=== PATIENT | male | born 1935 | race Hispanic/Latino ===

== ENCOUNTER → 2024-10-21 08:25 | Outpatient (REF) | payer OTHER, SELFPAY | LOC: RAD 08:25 | PROVIDERS: ATTENDING PHYSICIAN Nurse Practitioner Family | DX: M25.532 Pain in left wrist (principal) | CPT/HCPCS: 73110 ==

== ENCOUNTER 2024-10-22 14:36 | Emergency (ER) | payer OTHER, SELFPAY ==
[2024-10-22 14:46] VITALS: BP 146/79
[2024-10-22 15:45] VITALS: BP 163/88
--- NOTE | 2024-10-22 15:52 | ED.MUSCINJ ---
HPI-Injury
General
Chief Complaint: Musculo-Skeletal Complaint
Source: patient and family (daughter)
Time Seen by Provider: 10/22/24 15:15
History of Present Illness-Injury
Is this injury a work related problem?: No
Is pt an associate of [facility]?: No
Initial Injury comments:
Daughter states patient fell at home 2 weeks ago and injured his left wrist. He declined ED evaluation at that time. SHe brought him up here to her home this weekend and noticed he was having difficulty with using left hand/wrist. He was evaluated
at yesterday and given rx to come to hospital for outpatient xray. Today he was seen by ortho in office and sent to ED for closed reductions. Daughter states that they are declining surgery for him due to his age. Dr. Warren will be in to
perform closed reduction bedside.
Past History
Past History
ED Past Medical History: HTN
ED Past Surgical History: None
Review of Systems
Review of Systems
Allergies reviewed?: Yes
All Other Systems: ROS reviewed and negative except as documented in HPI and ROS
Constitutional: Reports no symptoms
Musculoskeletal: Reports joint pain (pain to left wrist)
Skin: Reports no symptoms
Neurological: Reports no symptoms
Psychiatric: Reports no symptoms
Musculoskeletal Injury Exam
Musculoskeletal Injury Exam
Left Wrist:
Pain with Movement?: Moderate
Tender to palpation?: Moderate
Soft tissue swelling?: Moderate
External deformity and angulation?: Mild
Joint effusion?: None
Contusion?: None
Hematoma-local bleeding into tissue?: None
Strain- Sprain- Tear (Connective tissue injury)?: Moderate
Crepitus with movement?: No
Joint instability?: No
Malalignment/deformity?: No
Range of motion: Limited
Distal skin color and temperature: normal-warm & good color
Capillary Refill: normal
Normal distal neurovascular exam?: Yes
Phy Exam
General Physical Exam
General Presentation: well appearing and no apparent distress
General age: appears stated age
General Skin: warm and dry
General Habitus: normal
General Mental: alert
Musculoskeletal Exam
Musculoskeletal Exam: neuro vasc intact
Skin Exam
Skin Exam: normal color and warm/dry
Psychiatric Exam
Psychiatric Exam: normal mood/affect
Injury Course
Orders/Labs/Results
Orders:
Orders
10/22/24 16:13
INT (Intravenous Needle Therapy) As Directed
10/22/24 16:43
HYDROmorphone [Dilaudid] 0.5 mg IV NOW STA
10/22/24 16:53
CR Wrist - Left Min 2 Views Urgent
Comment: portable
Reason For Exam: reduction
10/22/24 17:16
Wrist, Left 2 Views CR [CR Wrist - Left Min 2 Views] Urgent
Comment:
Reason For Exam: Portable, post reduction, post splint
*Radiology
Radiology exam reviewed: radiology read reviewed
*Critical Care Note
Total Time (30-74mins, 75-104mins- exclusive of procedures): Not Applicable
Update Note
Update Note:
Closed reduction performed bedside by Dr. Warren. SPlint applied by him. Patient tolerated procedure well. Will discharge home. He will follow up with with Dr. Warren in office in 10 days.
ED Attending Note
-
Portions of this chart may have been created with voice recognition software.� Occasional wrong word or��sound alike� substitutions may have occurred due to the inherent limitations of voice recognition software.
Discharge Plan
Departure
Patient Disposition: Home (Routine Discharge)
Date of Disposition: 10/22/24
Time of Disposition: 17:46
Patient with high blood pressure during this ER visit?: No
Condition: Good
Covid-19: Not Applicable
Discharge Problem:
Fracture of wrist
Instructions: How to Use a Shoulder Sling, Using Cold for Pain, Splint Care, Wrist fracture
Prescriptions:
No Action
prednisone 10 mg Tablet
See Rx Instructions .ROUTE .COMPLEX Qty: 30 0RF
Rx Instructions:
Take By Mouth:
40 mg daily x3 days, 30 mg daily x3 days,
20 mg daily x3 days, 10 mg daily x3 days.
Referrals:
Rudy Gonzalez MD [Family Provider] -
Fredis Warren MD [Active] - Keep scheduled appt
Interventions
Interventions:
*Risk Screen - Suicide Last Done: 10/22/24 15:41
*General Assessment Last Done: 10/22/24 15:41
*Neglect/Abuse Screening Last Done: 10/22/24 15:41
*ED COVID-19 Vaccine History Last Done: 10/22/24 15:41
ED-Musculoskeletal Assessment Last Done: 10/22/24 15:45
Discharge Date and Time
Print Language: POLISH
[2024-10-22 16:00] VITALS: BP 158/76
[2024-10-22] MEDS: DILAUDID 0.5 MG IV (16:45)
--- NOTE | 2024-10-22 17:13 | CON.ORTHO ---
Consultation - Orthopedics
History
HPI: 89-year-old [id number] male presented for evaluation of left wrist pain. He reportedly sustained a fall at home 10 to 12 days ago and refused initial treatment. He is currently staying with his daughter who is local and she wanted to
have him have this evaluated. Radiographs showed a extra-articular angulated distal radius fracture. Given that the patient had not had reduction, presented emergency department for reduction. Patient localizes pain to the left wrist. He had
been wearing a removable wrist brace. He is able to move his wrist with mild to moderate pain. He is predominantly [place]o-speaking only. He is accompanied by his daughter who lives locally. I denies any numbness or tingling. Does have a
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 Daughter does also note some cognitive decline
Allergies / Home Medications
Past medical history: Hypertension, cognitive decline
Past surgical history: None reported
Family history: Not pertinent
Social history: Lives with daughter in [place], visiting locally for the holidays
Allergy/AdvReac Type Severity Reaction Status Date / Time
No Known Allergies Allergy Unverified 11/13/23 19:33
�Medication �Instructions �Recorded
prednisone 10 mg tablet See Rx Instructions .Route 11/13/23
.COMPLEX #30 tabs
Vital Signs / Lab Results
Temp Pulse Resp BP Pulse Ox
97.9 F 73 14 158/76 98
10/22/24 14:46 10/22/24 16:00 10/22/24 15:45 10/22/24 16:00 10/22/24 16:00
review of systems: 10 point review of systems reviewed and negative as otherwise stated
Examination
General: Pleasant, seated comfortably in bed at rest, daughter at bedside
Musculoskeletal left upper extremity
Skin intact, no erythema or ecchymotic staining
There is obvious deformity to the left distal radius
There is mild to moderate tenderness palpation over deformity left distal radius
Chronic flexion contracture ulnar digits
Brisk cap refill
Patient able to actively flex and extend wrist
Diagnostic studies
X-rays left wrist at bedside after reduction shows significant improvement of apex volar dorsal angulation. Post splinting x-rays pending
Procedure performed
Risks and benefits of procedure were discussed at length with patient and his daughter at bedside and were in agreement with proceeding. A hematoma block was performed. Proximally 10 cc of 1% lidocaine without epinephrine were injected at the
fracture site after cleaning the skin with alcohol. Patient was given IV Dilaudid and gentle reduction maneuver was performed using traction countertraction. Preliminary radiograph showed significant improvement in dorsal angulation of fracture.
A well-padded sugar-tong splint was then applied with a appropriate 3 point mold. I will obtain post procedure radiographs.
Assessment / Plan
89-year-old [id number] male about 10 to 12 days out from fall with x-ray taken left distal radius fracture. Discussed treatment options including continuing with splinting versus close reduction and splinting and likely conversion to cast.
They are not interested in any surgical or more aggressive treatment options. After discussion they elected to undergo closed reduction. I would recommend nonweightbearing left upper extremity in splint and sling. I will plan to follow-up with
patient in outpatient office in about 10 days for repeat evaluation repeat radiographs and likely conversion to cast. All questions were addressed and answered.
Nonweightbearing left upper extremity in sling
Pain control
Follow-up outpatient 10 days
== END 2024-10-22 18:21 | disposition home or self-care (01) ==
LOC: EMR 14:36
PROVIDERS: EMERGENCY PHYSICIAN Emergency Medicine
DX: S52.502A Unspecified fracture of the lower end of left radius, initial encounter for closed fracture (principal); W19.XXXA Unspecified fall, initial encounter; I10 Essential (primary) hypertension
CPT/HCPCS: 25605; 99284; 64450; 96374; 73100